=== PATIENT | male | born 1995 | race Caucasian/White ===

== ENCOUNTER 2020-04-17 11:53 | Outpatient (CLI) | payer OTHER | END 2020-04-17 11:54 | disposition home or self-care (01) | LOC: COV 11:53 | PROVIDERS: ATTEND Family Medicine | DX: M79.10 Myalgia, unspecified site (principal); R19.7 Diarrhea, unspecified; R53.83 Other fatigue; R68.83 Chills (without fever); Z20.828 Contact with and (suspected) exposure to other viral communicable diseases ==